=== PATIENT | female | born 1990 | race Asian ===

== ENCOUNTER 2017-03-25 20:31 | Emergency (ER) | payer OTHER ==
[2017-03-25 20:37] VITALS: BP 116/76
--- NOTE | 2017-03-25 21:19 | UC ---
Complaint Female HPI - HPI Summary HPI Summary: Pain and burning with urination for 1 hour last UTI was in October - History Of Current Complaint Chief Complaint: UCGU Stated Complaint: POSS UTI Time Seen by Provider: 03/25/17 21:19 Hx Obtained From: Patient ?: No Onset/Duration: Sudden Onset, Lasting Hours - 1, Still Present Timing: Constant Severity Initially: Moderate Severity Currently: Moderate Pain Intensity: 6 Pain Scale Used: 0-10 Numeric Character: Burning Aggravating Factor(s): Urination Alleviating Factor(s): Nothing Associated Signs And Symptoms: Positive: Negative - Allergies/Home Medications Allergies/Adverse Reactions: Allergies Allergy/AdvReac Type Severity Reaction Status Date / Time Amoxicillin Allergy Hives Verified 03/25/17 21:24 PMH/Surg Hx/FS Hx/Imm Hx Previously Healthy: Yes - Family History Known Family History: Positive: None - Social History Occupation: Student Lives: With Family Alcohol Use: None Substance Use Type: None Smoking Status (MU): Never Smoked Tobacco Review of Systems Constitutional: Negative Skin: Negative Eyes: Negative ENT: Negative Respiratory: Negative Cardiovascular: Negative Gastrointestinal: Negative Genitourinary: Dysuria, Frequency, Urgency Motor: Negative Neurovascular: Negative Musculoskeletal: Negative Neurological: Negative Psychological: Negative All Other Systems Reviewed And Are Negative: Yes Physical Exam Triage Information Reviewed: Yes Appearance: Well-Appearing, No Pain Distress, Well-Nourished Vital Signs: Initial Vital Signs Temp 98.8 F 03/25/17 20:34 Pulse 72 03/25/17 20:34 Resp 18 03/25/17 20:34 BP 116/76 03/25/17 20:34 Pulse Ox 100 03/25/17 20:34 Vital Signs Reviewed: Yes Eye Exam: Normal Eyes: Positive: Conjunctiva Clear ENT Exam: Normal ENT: Positive: Normal ENT inspection, Hearing grossly normal. Negative: Nasal congestion, Nasal drainage, Trismus, Muffled/hoarse voice Dental Exam: Normal Neck exam: Normal Neck: Positive: Supple, Nontender Respiratory Exam: Normal Respiratory: Positive: Chest non-tender, No respiratory distress, No accessory muscle use Cardiovascular Exam: Normal Cardiovascular: Positive: RRR, Pulses Normal, Brisk Capillary Refill Abdominal Exam: Normal Abdomen Description: Positive: Nontender, No Organomegaly, Soft. Negative: CVA Tenderness (R), CVA Tenderness (L) Bowel Sounds: Positive: Present Musculoskeletal Exam: Normal Musculoskeletal: Positive: Strength Intact, ROM Intact, No Edema Neurological Exam: Normal Neurological: Positive: Alert, Muscle Tone Normal Psychological Exam: Normal Skin Exam: Normal Complaint Female Dx - Course Course Of Treatment: increase fluids, Bactrim, AZO follow with pcp - Differential Dx/Diagnosis Differential Diagnosis/HQI/PQRI: , Renal Colic, Ureteral Stone, Urinary Tract Infection Provider Diagnoses: UTI Discharge - Discharge Plan Condition: Stable Disposition: HOME Prescriptions: Phenazopyridine TAB* [Pyridium 100 mg TAB*] 100 mg PO TID PRN #6 tab PRN Reason: urinary pain and burning Sulfamethox/Trimethoprim DS* [Bactrim DS 800/160 TAB*] 1 tab PO BID #9 tab Patient Education Materials: Phenazopyridine (By mouth), Urinary Tract Infection in Women (ED) Referrals: [facility] [place] [facility] [Outside] - If Needed
[2017-03-25] MEDS ORDERED: Sulfamethox/Trimethoprim DS 800/160* TAB PO ONE ×2 (21:22→21:28)
[2017-03-25] MEDS ORDERED: Phenazopyridine TAB* 100 MG PO ONE (21:23)
== END 2017-03-25 21:32 | disposition home or self-care (01) ==
LOC: UCEAST 20:31
DX: N39.0 Urinary tract infection, site not specified (principal); Z87.440 Personal history of urinary (tract) infections; Z88.3 Allergy status to other anti-infective agents
CPT/HCPCS: 81003; 84702; 87077; 87086; 87186; 99203; A9270-GY; G0463